=== PATIENT | female | born 2000 | race Caucasian/White ===

== ENCOUNTER 2020-11-30 15:36 | Emergency (ER) | payer MEDICAID, OTHER ==
[~2020-11-30] VITALS: Ht 170.2 cm; Wt 66.2 kg
[2020-11-30 15:37] VITALS: BP 134/86
[2020-11-30] MEDS ORDERED: CEPHALEXIN 500 MG CAPSULE PO ONE (16:00)
[2020-11-30] MEDS ORDERED: TETANUS/DIPHTHERIA TOXOID [ADULT] 0.5 ML VIAL IM ONE (16:00)
[2020-11-30] MEDS ORDERED: LIDOCAINE HCL 1% 20 ML VIAL ONE (16:34)
[2020-11-30] MEDS ORDERED: CEPH500B PO (16:45)
[2020-11-30] MEDS ORDERED: LIDOCAINE HCL 1% 20 ML VIAL INJ SCH (17:00)
[2020-11-30 17:11] VITALS: BP 125/76
== END 2020-11-30 17:14 | disposition home or self-care (01) ==
LOC: EDH 15:36
DX: S91.311A Laceration without foreign body, right foot, initial encounter (principal); X58.XXXA Exposure to other specified factors, initial encounter; Y93.89 Activity, other specified; Y92.89 Other specified places as the place of occurrence of the external cause; Y99.8 Other external cause status
CPT/HCPCS: 12001; 73630; 90471; 90714

== ENCOUNTER 2020-12-13 10:47 | Day surgery (SDC) | payer SELFPAY ==
[2020-12-11 12:59] LABS: BASOPHILS % (AUTO) 1.2 % (0.0-5.0); EOSINOPHILS % (AUTO) 0.7 % (0.0-8.0); HEMATOCRIT 40.4 % (36-48); LYMPHOCYTES % (AUTO) 31.5 % (21.0-51.0); MEAN CORPUSCULAR HEMOGLOBIN 27.2 pg (27.0-33.0); MEAN CORPUSCULAR HGB CONC 31.4 g/dL (32.0-36.0); MEAN CORPUSCULAR VOLUME 86.5 fL (79-99); MONOCYTES % (AUTO) 9.9 % (3.0-13.0); NEUTROPHILS % (AUTO) 56.6 % (40.0-77.0); PLATELET COUNT (AUTO) 230 K/uL (130-400); RED BLOOD CELL COUNT(AUTO) 4.67 MIL/uL (4.00-5.50); WHITE BLOOD COUNT (AUTO) 6.9 K/uL (4.8-10.8)
[2020-12-11 13:11] LABS: CREATININE 0.9 mg/dL (0.5-1.5); POTASSIUM 3.8 mmol/L (3.5-5.1)
[2020-12-12 13:47] VITALS: BP 109/62
[~2020-12-13] VITALS: Ht 170.2 cm; Wt 74.7 kg
[2020-12-13] VITALS (16 sets, daily range): BP systolic 104–133; BP diastolic 59–84
[~2020-12-13 10:47] MED LIST: CEFAZOLIN SODIUM 1 GM VIAL IVP SCH
[2020-12-13] MEDS: LACTATED RINGERS 1000ML 1,000 ML IV SCH ×2 (11:20→13:45)
[2020-12-13] MEDS ORDERED: PROPOFOL 10 MG/ML 20ML VIAL IV ONE (11:49)
[2020-12-13] MEDS ORDERED: DEXAMETHASONE SOD PHOSPHATE 10MG/ML 1ML VIAL ONE (11:49)
[2020-12-13] MEDS ORDERED: FENTANYL CITRATE PF 50 MCG/1 ML 2ML VIAL ONE ×2 (11:49→12:28)
[2020-12-13] MEDS ORDERED: LIDOCAINE PF 100MG/5ML (2%) SYRINGE 5ML ONE (11:49)
[2020-12-13] MEDS ORDERED: SUCCINYLCHOLINE CHLORIDE 20 MG/ML 10 ML VIAL ONE (11:49)
[2020-12-13] MEDS ORDERED: GLYCOPYRROLATE 1 MG/5 ML SYRINGE ONE (11:49)
[2020-12-13] MEDS ORDERED: NEOSTIGMINE 5MG/5ML SYR IV ONE (11:49)
[2020-12-13] MEDS ORDERED: ONDANSETRON 4MG INJ ONE ×2 (11:49→12:44)
[2020-12-13] MEDS ORDERED: ROCURONIUM 10MG/1ML SYR 10 MG/ML ML ONE (11:50)
[2020-12-13] MEDS ORDERED: MIDAZOLAM HCL 1 MG/ML 2ML VIAL ONE (11:50)
[2020-12-13] MEDS ORDERED: GENTAMICIN SULFATE 0.3% 3.5 GM OPHTH OINT ONE (11:52)
[2020-12-13] MEDS ORDERED: ROPIVACAINE 0.5% 5MG/ML 30ML IJ ONE (11:54)
[2020-12-13] MEDS ORDERED: NALOXONE HCL 0.4 MG/1 ML ML ONE (13:18)
[2020-12-13] MEDS ORDERED: MEPERIDINE-PF 25 MG/ML SYG ONE (14:22)
== END 2020-12-13 15:40 | disposition home or self-care (01) ==
LOC: DAH 10:47
PROVIDERS: ATTEND Orthopaedic Surgery
DX: S96.121A Laceration of muscle and tendon of long extensor muscle of toe at ankle and foot level, right foot, initial encounter (principal); Z20.822 Contact with and (suspected) exposure to COVID-19; W25.XXXA Contact with sharp glass, initial encounter; Y93.89 Activity, other specified; Y92.89 Other specified places as the place of occurrence of the external cause
CPT/HCPCS: 28208; 36415; 71045; 80048; 84703; 85025; 87426; 93005; A4215; A4221; A4222; A4223; A4649; A4663; A4930; A6223; A6260; G0168; J0330; J0690; J1100; J2001; J2175; J2250; J2310; J2405 ×2; J2704; J2710; J2795; J3010 ×2; J3490; J7120; Q4050